=== PATIENT | male | born 1940 | race Caucasian/White ===

== ENCOUNTER 2016-11-24 20:41 | Observation (INO) ==
--- NOTE | 2016-11-24 20:47 | Emergency Department Note ---
Disposition Clinical Impression: Pancreatitis, Hyponatremia, Acute on chronic renal failure, Diarrhea, Dehydration, Generalized weakness Disposition: Admitted As Inpatient Condition: Good General Adult HPI - General Chief complaint: ED Abdominal Pain Stated complaint: abd pain, fall Time Seen by Provider: 11/24/16 20:43 - Related Data Home Medications Medication Instructions Recorded Confirmed Aspirin Enteric Coated [Aspirin EC] 162 mg PO QAM 03/08/15 11/24/16 Escitalopram [Lexapro] 10 mg PO QAM 03/08/15 11/24/16 Fluticasone/Salmeterol [Advair 1 puff IH BID 03/08/15 11/24/16 500-50 Diskus] Liraglutide [Victoza 2-Clifford] 1.8 mg SQ DAILY 03/08/15 11/24/16 Meclizine [Antivert] 25 mg PO TID PRN 03/08/15 11/24/16 Multivitamin/Iron/Folic Acid 1 tab PO QAM 03/08/15 11/24/16 [Centrum Complete Multivit Tab] Pantoprazole Sodium 40 mg PO QAM 03/08/15 11/24/16 Tamsulosin [Flomax] 0.4 mg PO QPM 03/08/15 11/24/16 Ticagrelor [Brilinta] 90 mg PO BID 03/08/15 11/24/16 Tiotropium [Spiriva] 18 mcg IH QAM 03/08/15 11/24/16 Vitamin E 400 unit PO QAM 03/08/15 11/24/16 Metoprolol [Lopressor] 25 mg PO BID 11/26/15 11/24/16 Ammonium Lactate [Lac-Hydrin Five] 1 appl TP BID 11/24/16 11/24/16 Atorvastatin Calcium [Lipitor] 80 mg PO HS 11/24/16 11/24/16 Cholecalciferol (Vitamin D3) 400 unit PO BID 11/24/16 11/24/16 [Vitamin D] Clotrimazole/Betameth Dip CRM 1 appl TP BID 11/24/16 11/24/16 [Lotrisone CRM] Insulin Glargine,Hum.rec.anlog 50 unit SQ QAM 11/24/16 11/24/16 [Lantus Solostar] Ipratropium/Albuterol Sulfate 2 puff IH QID PRN 11/24/16 11/24/16 [Combivent Respimat Inhal [place]] Isosorbide MONOnitrate [Isosorbide 120 mg PO DAILY 11/24/16 11/24/16 Mononitrate ER] Losartan Potassium [Cozaar] 50 mg PO DAILY 11/24/16 11/24/16 Nitroglycerin [Nitrostat] 0.4 mg SL Q5M PRN 11/24/16 11/24/16 Oxygen 3 l NS HS 11/24/16 11/24/16 Umeclidinium [place] [Incruse 62.5 mcg IH DAILY 11/24/16 11/24/16 Ellipta] Previous Rx's Medication Instructions Recorded Ranolazine [Ranexa] 1,000 mg PO BID #60 tab.er.12h 04/10/15 Allergies Allergy/AdvReac Type Severity Reaction Status Date / Time No Known Allergies Allergy Verified 11/26/15 08:29 Past Medical History - Past Medical History Medical history: Reports: cancer, cirrhosis, COPD, coronary artery disease, diabetes, GERD, hyperlipidemia, hypertension, liver disease, myocardial infarction, renal disease, other Surgical history: Reports: angioplasty/stent, cataract, coronary bypass (CABG) Psychiatric history: Reports: no psych history - Social History Smoking Status: Former smoker Smokeless Tobacco Status: No Alcohol use: Reports: none Drug use: Reports: none Course Vital Signs Temperature 98.6 F 11/24/16 20:55 Pulse Rate 80 11/24/16 20:55 Respiratory Rate 20 11/24/16 20:55 Blood Pressure 123/57 11/24/16 20:55 O2 Sat by Pulse Oximetry 96 11/24/16 20:55 Temperature 98.6 F 11/24/16 20:55 Pulse Rate 74 11/24/16 22:00 Respiratory Rate 16 11/24/16 22:00 Blood Pressure 102/61 11/24/16 22:00 O2 Sat by Pulse Oximetry 94 11/24/16 22:00 Oxygen Delivery Oxygen Delivery Nasal Cannula Medical Decision Making - Lab Data Result diagrams: 11/24/16 21:33 11/24/16 21:33 Lab Results 11/24/16 11/24/16 11/24/16 Range/Units 20:48 21:33 21:33 WBC 9.9 (4.3-11.1) K/mcL RBC 4.24 (4.19-5.50) M/mcL Hgb 12.0 L (12.9-16.9) g/dL Hct 36.9 L (37.5-50.1) % MCV 87.0 (83.0-100.0) fL MCH 28.3 (28.0-33.3) pg MCHC 32.5 (31.6-35.5) g/dL RDW 14.4 (11.5-14.5) % Plt Count 188 (140-400) K/mcL MPV 9.0 L (9.4-12.4) fL Immature Gran % 0.5 (0-4) % Seg Neutrophils % 73.9 % Lymphocytes % 15.3 % Monocytes % 8.4 % Eosinophils % 1.5 % Basophils % 0.4 % Neutrophils # 7.3 (1.6-8.9) K/mcL Lymphocytes # 1.5 (0.6-4.6) K/mcL Monocytes # 0.8 (0.0-1.3) K/mcL Eosinophils # 0.2 (0.0-0.6) K/mcL Basophils # 0.0 (0.0-0.2) K/mcL Immature Plt Fraction 1.7 (1.1-6.1) % Sodium 131 L (136-145) mEq/L Potassium 4.9 H (3.5-4.5) mEq/L Chloride 103 (98-109) mEq/L Carbon Dioxide 21 (19-29) mEq/L BUN 34 H (8-26) mg/dL Creatinine 1.97 H (0.72-1.25) mg/dL Est GFR ( Amer) 40 L (> 60) Est GFR (Non-Af Amer) 33 L (> 60) BUN/Creatinine Ratio 17 (6-26) Glucose 317 H (70-99) mg/dL POC Glucose 297 H (58-89) Calculated Osmolality 292 (280-300) Calcium 9.1 (8.6-10.8) mg/dL Total Bilirubin 1.2 (0.2-1.2) mg/dL Direct Bilirubin 0.5 (0.0-0.5) mg/dL Indirect Bilirubin 0.7 (0.0-1.2) mg/dL AST 20 (5-34) Units/L ALT 17 (0-55) Units/L Alkaline Phosphatase 64 (38-126) Units/L Troponin I (0-0.03) ng/mL Serum Total Protein 7.4 (6.0-8.3) g/dL Albumin 3.4 L (3.5-5.0) g/dL Globulin 4.0 H (2.4-3.5) g/dL Albumin/Globulin Ratio 0.9 L (1.1-2.2) Lipase 259 H (8-78) Units/L 11/24/16 Range/Units 21:33 WBC (4.3-11.1) K/mcL RBC (4.19-5.50) M/mcL Hgb (12.9-16.9) g/dL Hct (37.5-50.1) % MCV (83.0-100.0) fL MCH (28.0-33.3) pg MCHC (31.6-35.5) g/dL RDW (11.5-14.5) % Plt Count (140-400) K/mcL MPV (9.4-12.4) fL Immature Gran % (0-4) % Seg Neutrophils % % Lymphocytes % % Monocytes % % Eosinophils % % Basophils % % Neutrophils # (1.6-8.9) K/mcL Lymphocytes # (0.6-4.6) K/mcL Monocytes # (0.0-1.3) K/mcL Eosinophils # (0.0-0.6) K/mcL Basophils # (0.0-0.2) K/mcL Immature Plt Fraction (1.1-6.1) % Sodium (136-145) mEq/L Potassium (3.5-4.5) mEq/L Chloride (98-109) mEq/L Carbon Dioxide (19-29) mEq/L BUN (8-26) mg/dL Creatinine (0.72-1.25) mg/dL Est GFR ( Amer) (> 60) Est GFR (Non-Af Amer) (> 60) BUN/Creatinine Ratio (6-26) Glucose (70-99) mg/dL POC Glucose (58-89) Calculated Osmolality (280-300) Calcium (8.6-10.8) mg/dL Total Bilirubin (0.2-1.2) mg/dL Direct Bilirubin (0.0-0.5) mg/dL Indirect Bilirubin (0.0-1.2) mg/dL AST (5-34) Units/L ALT (0-55) Units/L Alkaline Phosphatase (38-126) Units/L Troponin I 0.01 (0-0.03) ng/mL Serum Total Protein (6.0-8.3) g/dL Albumin (3.5-5.0) g/dL Globulin (2.4-3.5) g/dL Albumin/Globulin Ratio (1.1-2.2) Lipase (8-78) Units/L Attestation Statement - Attestation Attestation: I examined this patient and my medical decision-making was reviewed with the KITCHEN SUPERVISOR/PA/Advanced Practice Nurse/Resident Physician. I agree with the documented findings, disposition and treatment plan as described except to the extent set forth below. Face to face time provided Patient presents via EMS from home. He sustained a witnessed fall. No loss of consciousness. He denies injury. Witnesses describe him as being "shaky" and falling forward. Patient feels fine at the time of my exam. He appears in no acute distress. He does admit to a 3 day history of "being sick" described as having diarrhea.
[2016-11-24] MEDS ORDERED: 0.9 % Sodium Chloride 1,000 ML IVC ONE (20:53)
--- NOTE | 2016-11-24 21:09 | Emergency Department Note ---
Disposition Clinical Impression: Hyponatremia, Acute on chronic renal failure, Diarrhea, Dehydration, Generalized weakness Pancreatitis Qualifiers: Chronicity: acute Pancreatitis type: unspecified pancreatitis type Acute pancreatitis complication: unspecified Qualified Code(s): K85.90 - Acute pancreatitis without necrosis or infection, unspecified Disposition: Admitted As Inpatient Condition: Good Referrals: NO,PCP [Non-Partnered Physician] - Forms: ED Satisfaction Letter, Work/School Release General Adult HPI - General Chief complaint: ED Abdominal Pain Stated complaint: abd pain, fall Time Seen by Provider: 11/24/16 20:43 Source: patient, family, EMS Limitations: no limitations Nursing Notes Reviewed: Yes Vital Signs Reviewed: Yes - History of Present Illness HPI Narrative: 76-year-old male presents to the ED after a fall. He states for the past 3 days he has had 2-3 episodes of diarrhea daily. He reports eating a sandwich from [employer] and shortly after developed diarrhea. Nonbloody, described as water. No recent antibiotics. He has had no fevers or chills. He states he has felt drained and tired but no other symptoms. He was walking in the living room and he states he fell on the ground because he felt generally weak. He had no preceding symptoms such as worsening pain, nausea or vomiting, chest pain or shortness of breath, lightheadedness or dizziness. He states he fell because he has been weak. There was no loss of consciousness. He did not hit his head and denies any headache. He reports occasional lower abdominal cramping when going on while he has been sick but no continuous or significant pain. Denies any ripping or tearing pain or radiation of the pain particularly into the back. He has a history of coronary disease and has had open heart surgery twice. He takes aspirin and Brilinta. He is also an insulin-dependent diabetic. Currently denies symptoms and states he feels fine. Pain Scale: 0 - Related Data Home Medications Medication Instructions Recorded Confirmed Aspirin Enteric Coated [Aspirin EC] 81 mg PO QAM 03/08/15 11/26/15 Atorvastatin [Lipitor] 80 mg PO QPM 03/08/15 11/26/15 Cholecalciferol (Vitamin D3) 1,000 unit PO QAM 03/08/15 11/26/15 [Vitamin D3] Escitalopram [Lexapro] 10 mg PO QAM 03/08/15 11/26/15 Fluticasone/Salmeterol [Advair 1 puff IH BID 03/08/15 11/26/15 500-50 Diskus] Ipratropium/Albuterol Sulfate 1 puff IH QID 03/08/15 11/26/15 [Combivent Respimat Inhal [place]] Isosorbide MONOnitrate (24 HR) 120 mg PO QAM 03/08/15 11/26/15 [Imdur] Liraglutide [Victoza 2-Clifford] 1.2 mg SQ QAM 03/08/15 11/26/15 Losartan [Cozaar] 50 mg PO QAM 03/08/15 11/26/15 Meclizine [Antivert] 25 mg PO TID PRN 03/08/15 11/26/15 Multivitamin/Iron/Folic Acid 1 tab PO QAM 03/08/15 11/26/15 [Centrum Complete Multivit Tab] Pantoprazole Sodium 40 mg PO QAM 03/08/15 11/26/15 Tamsulosin [Flomax] 0.4 mg PO QPM 03/08/15 11/26/15 Ticagrelor [Brilinta] 90 mg PO BID 03/08/15 11/26/15 Tiotropium [Spiriva] 18 mcg IH QAM 03/08/15 11/26/15 Vitamin E 400 unit PO QAM 03/08/15 11/26/15 Metoprolol [Lopressor] 25 mg PO BID 11/26/15 11/26/15 Previous Rx's Medication Instructions Recorded Ranolazine [Ranexa] 1,000 mg PO BID #60 tab.er.12h 04/10/15 Cephalexin [Keflex] 500 mg PO TID #15 capsule 01/05/16 Amoxicillin/Clavulanate [Augmentin] 875 mg PO BIDWM #20 tablet 07/17/16 Benzonatate [Tessalon] 100 mg PO TID #30 capsule 07/17/16 Promethazine/Codeine 5 ml PO Q6HR #240 ml 07/17/16 [Phenergan/Codeine] Allergies Allergy/AdvReac Type Severity Reaction Status Date / Time No Known Allergies Allergy Verified 11/26/15 08:29 All systems ED: reviewed and negative except as stated. Constitutional: Denies: fever, chills Cardiovascular: Denies: chest pain, syncope Respiratory: Denies: cough, dyspnea Gastrointestinal: Reports: diarrhea. Denies: nausea, vomiting, melena, hematochezia Genitourinary: Denies: urgency, dysuria Musculoskeletal: Denies: back pain, neck pain Neurological: Denies: headache, weakness (Generalized but nothing focal), numbness Past Medical History - Past Medical History Medical history: Reports: cancer, cirrhosis, COPD, coronary artery disease, diabetes, GERD, hyperlipidemia, hypertension, liver disease, myocardial infarction, renal disease, other Surgical history: Reports: angioplasty/stent, cataract, coronary bypass (CABG) Psychiatric history: Reports: no psych history - Social History Smoking Status: Former smoker Smokeless Tobacco Status: No Alcohol use: Reports: none Drug use: Reports: none Physical Exam General: Appears well, alert and oriented x 3 Cardiovascular: Regular rate and rhythm. S1, S2. No murmurs, rubs or gallops. Respiratory: Breath sounds clear bilaterally. No wheezing, rales or rhonchi. No resp distress Abdomen: Abdomen is soft without any guarding, rebound or rigidity. Normal bowel sounds throughout. No bruising or signs of injury. Mild lower abdominal discomfort. No focal right lower quadrant pain at McBurney's point. Negative Joiner's. No hernias palpated. No pulsatile abdominal mass. Eyes: No scleral icterus, conjunctiva clear HENT: Normocephalic, no signs of head injury. No head tenderness No oral mucosal lesions. Moist mucous membranes Neck: No midline pain. Neuro: Cranial nerves intact. No motor or sensory deficit. 5/5 lower extremity strength throughout. 5/5 upper extremity strength throughout. Normal sensation throughout. Musculoskeletal: No joint tenderness or swelling Skin: No lesions. No diaphoresis. Normal turgor. Normal color Psych: Appropriate - General Limitations: no limitations General appearance: alert, in no apparent distress Course Course Narrative: Presents to emergency department with a chief complaint of diarrhea and generalized weakness. He had a fall today but no preceding symptoms. EKG unremarkable. Abdomen is soft without any surgical findings. Labs reveal an elevated lipase at 259. He is hyponatremic at 131 and hyperkalemic at 4.9. He has acute on chronic renal insufficiency with a creatinine of 1.9. With this at this time to admit the patient the hospital and provide IV hydration, correct his electrolytes and continue to monitor. I discussed with the on-call hospitalist, Dr Richards who accepts for admission. He requests a CT scan of the abdomen due to the elevated lipase to look for pancreatitis. We will have to use no IV contrast because of his renal insufficiency. Vital Signs Temperature 98.6 F 11/24/16 20:55 Pulse Rate 80 11/24/16 20:55 Respiratory Rate 20 11/24/16 20:55 Blood Pressure 123/57 11/24/16 20:55 O2 Sat by Pulse Oximetry 96 11/24/16 20:55 Temperature 98.6 F 11/24/16 20:55 Pulse Rate 80 11/24/16 20:55 Respiratory Rate 20 11/24/16 20:55 Blood Pressure 123/57 11/24/16 20:55 O2 Sat by Pulse Oximetry 96 11/24/16 20:59 Oxygen Delivery Oxygen Delivery Nasal Cannula Medical Decision Making - Lab Data Result diagrams: 11/24/16 21:33 11/24/16 21:33 Lab Results 11/24/16 11/24/16 11/24/16 Range/Units 20:48 21:33 21:33 WBC 9.9 (4.3-11.1) K/mcL RBC 4.24 (4.19-5.50) M/mcL Hgb 12.0 L (12.9-16.9) g/dL Hct 36.9 L (37.5-50.1) % MCV 87.0 (83.0-100.0) fL MCH 28.3 (28.0-33.3) pg MCHC 32.5 (31.6-35.5) g/dL RDW 14.4 (11.5-14.5) % Plt Count 188 (140-400) K/mcL MPV 9.0 L (9.4-12.4) fL Immature Gran % 0.5 (0-4) % Seg Neutrophils % 73.9 % Lymphocytes % 15.3 % Monocytes % 8.4 % Eosinophils % 1.5 % Basophils % 0.4 % Neutrophils # 7.3 (1.6-8.9) K/mcL Lymphocytes # 1.5 (0.6-4.6) K/mcL Monocytes # 0.8 (0.0-1.3) K/mcL Eosinophils # 0.2 (0.0-0.6) K/mcL Basophils # 0.0 (0.0-0.2) K/mcL Immature Plt Fraction 1.7 (1.1-6.1) % Sodium 131 L (136-145) mEq/L Potassium 4.9 H (3.5-4.5) mEq/L Chloride 103 (98-109) mEq/L Carbon Dioxide 21 (19-29) mEq/L BUN 34 H (8-26) mg/dL Creatinine 1.97 H (0.72-1.25) mg/dL Est GFR ( Amer) 40 L (> 60) Est GFR (Non-Af Amer) 33 L (> 60) BUN/Creatinine Ratio 17 (6-26) Glucose 317 H (70-99) mg/dL POC Glucose 297 H (58-89) Calculated Osmolality 292 (280-300) Calcium 9.1 (8.6-10.8) mg/dL Total Bilirubin 1.2 (0.2-1.2) mg/dL Direct Bilirubin 0.5 (0.0-0.5) mg/dL Indirect Bilirubin 0.7 (0.0-1.2) mg/dL AST 20 (5-34) Units/L ALT 17 (0-55) Units/L Alkaline Phosphatase 64 (38-126) Units/L Troponin I (0-0.03) ng/mL Serum Total Protein 7.4 (6.0-8.3) g/dL Albumin 3.4 L (3.5-5.0) g/dL Globulin 4.0 H (2.4-3.5) g/dL Albumin/Globulin Ratio 0.9 L (1.1-2.2) Lipase 259 H (8-78) Units/L 11/24/16 Range/Units 21:33 WBC (4.3-11.1) K/mcL RBC (4.19-5.50) M/mcL Hgb (12.9-16.9) g/dL Hct (37.5-50.1) % MCV (83.0-100.0) fL MCH (28.0-33.3) pg MCHC (31.6-35.5) g/dL RDW (11.5-14.5) % Plt Count (140-400) K/mcL MPV (9.4-12.4) fL Immature Gran % (0-4) % Seg Neutrophils % % Lymphocytes % % Monocytes % % Eosinophils % % Basophils % % Neutrophils # (1.6-8.9) K/mcL Lymphocytes # (0.6-4.6) K/mcL Monocytes # (0.0-1.3) K/mcL Eosinophils # (0.0-0.6) K/mcL Basophils # (0.0-0.2) K/mcL Immature Plt Fraction (1.1-6.1) % Sodium (136-145) mEq/L Potassium (3.5-4.5) mEq/L Chloride (98-109) mEq/L Carbon Dioxide (19-29) mEq/L BUN (8-26) mg/dL Creatinine (0.72-1.25) mg/dL Est GFR ( Amer) (> 60) Est GFR (Non-Af Amer) (> 60) BUN/Creatinine Ratio (6-26) Glucose (70-99) mg/dL POC Glucose (58-89) Calculated Osmolality (280-300) Calcium (8.6-10.8) mg/dL Total Bilirubin (0.2-1.2) mg/dL Direct Bilirubin (0.0-0.5) mg/dL Indirect Bilirubin (0.0-1.2) mg/dL AST (5-34) Units/L ALT (0-55) Units/L Alkaline Phosphatase (38-126) Units/L Troponin I 0.01 (0-0.03) ng/mL Serum Total Protein (6.0-8.3) g/dL Albumin (3.5-5.0) g/dL Globulin (2.4-3.5) g/dL Albumin/Globulin Ratio (1.1-2.2) Lipase (8-78) Units/L - EKG Data EKG #1 EKG results narrative: EKG shows a sinus rhythm with a rate of [address] changes. He has a right bundle branch block pattern. No change from previous on 04/10/15. T -wave flattening in lead 3 and aVF which is chronic. No new T-wave inversions.
[2016-11-24 21:41] LABS: Basophils % 0.4 %; Eosinophils # 0.2 K/mcL (0.0-0.6); Eosinophils % 1.5 %; Hematocrit 36.9 % (37.5-50.1); Immature Granulocytes % 0.5 % (0-4); Immature Platelets 1.7 % (1.1-6.1); Lymphocytes # 1.5 K/mcL (0.6-4.6); Lymphocytes % 15.3 %; Mean Corpuscular HGB Conc 32.5 g/dL (31.6-35.5); Mean Corpuscular Hemoglobin 28.3 pg (28.0-33.3); Monocytes # 0.8 K/mcL (0.0-1.3); Monocytes % 8.4 %; Neutrophils # 7.3 K/mcL (1.6-8.9); Platelet Count 188 K/mcL (140-400); Red Blood Count 4.24 M/mcL (4.19-5.50); Red Cell Distribution Width 14.4 % (11.5-14.5); Segmented Neutrophils % 73.9 %
[2016-11-24 21:54] LABS: Albumin 3.4 g/dL (3.5-5.0); Albumin/Globulin Ratio 0.9 (1.1-2.2); Bilirubin,Direct 0.5 mg/dL (0.0-0.5); Bilirubin,Indirect 0.7 mg/dL (0.0-1.2); Bilirubin,Total 1.2 mg/dL (0.2-1.2); Calcium 9.1 mg/dL (8.6-10.8); Potassium 4.9 mEq/L (3.5-4.5); Total Protein 7.4 g/dL (6.0-8.3)
[2016-11-24] MEDS ORDERED: Ondansetron 4 MG/2 ML VIAL IVP PRN (23:47)
[2016-11-24] MEDS ORDERED: Naloxone 0.4 MG/ML INJ IVP PRN (23:47)
--- NOTE | 2016-11-25 | Internal Med History&Physical ---
Addendum entered and electronically signed by Chris Awad, DO 11/25/16 00:33: Additional diagnoses: Hyperkalemia: Likely related to the patient's dehydration. No evidence of cardiac arrhythmia. Will recheck potassium. Will initiate cardiac monitoring. Type 2 diabetes: Blood sugar was elevated on presentation. As the patient is nothing by mouth we will hold his long-acting insulin and institute a high-dose sliding scale. Once the patient is able to eat and we have a better idea of his blood sugar trend we can then adjust his insulin accordingly. Original Note: <Chris Awad - Last Filed: 11/25/16 00:26> Date of Encounter: 11/25/16 Time of Encounter: 23:55 Assessment and Plan (1) Enteritis Current visit: Yes Status: Acute Given the patient's symptoms of watery diarrhea in the absence of nausea and vomiting enteritis is likely. His symptoms are improving. He does not have any recent healthcare exposure or antibiotic use so C. difficile is unlikely at this time. We will treat symptomatically and give fluid hydration. Patient has not had a bowel movement since this morning. If his diarrhea worsens we will send a sample for the GI panel. CT scan showed concern for small bowel obstruction however clinically the patient does not appear to have a small bowel obstruction as he is having continual bowel movements and he is not having any nausea or vomiting. We will observe the patient overnight and if he does not appear to be improving and will consider consulting surgery. We will keep the patient nothing by mouth at this time. (2) Dehydration Current visit: Yes Status: Acute Likely related to diarrhea secondary to enteritis. Patient was having some dizziness and lightheaded this with an associated fall. Will fluid hydrate with normal saline at 150 mL an hour for a total of 2 L. (3) Acute on chronic renal failure Current visit: Yes Status: Acute Drains elevated at 1.97 today, baseline appears to be 1.3-1.5. Likely related to dehydration. Patient continues to have good urine output. We will hydrate as discussed above. Will recheck creatinine in the morning. (4) COPD (chronic obstructive pulmonary disease) Current visit: No Status: Acute Stable this time. No evidence exacerbation. We will continue home medications. Qualifiers: COPD type: unspecified COPD Qualified Code(s): J44.9 - Chronic obstructive pulmonary disease, unspecified (5) CAD (coronary artery disease) Current visit: No Status: Acute Status post CABG several years ago. Patient is currently on dual antiplatelet therapy. Patient states that he had a stent placed one to 2 years ago at [facility] and was told at that time he would need to be on both aspirin and the length of the rest of his life. We will continue this. Qualifiers: Coronary Disease-Associated Artery/Lesion type: [place] artery [place] vs. transplanted heart: [place] heart Associated angina: without angina Qualified Code(s): I25.10 - Atherosclerotic heart disease of [place] coronary artery without angina pectoris (6) DVT prophylaxis Current visit: Yes Status: Acute Heparin 5000 units subcutaneous twice a day. Internal Medicine - H&P: HPI Chief complaint: Diarrhea Admitted From: Home Plans for Post Hospital Care: Home History of present illness: Mr. High is a 76 year old male with history of hepatic cirrhosis presents with a three-day history of diarrhea. Patient states that he had diarrhea 3 days ago shortly after eating a [employer] chicken sandwich. Since then he has had continual diarrhea with 3-4 bowel movements daily. He describes his bowel movements as watery and nonbloody. He feels like these are gradually improving. Today he felt lightheaded and dizzy and had a fall. He denies hitting his head or losing consciousness. He also states that his stomach felt distended and tight but this is improved today. Patient states that he has had no nausea or vomiting throughout this entire episode. He states nobody else that ate [employer] got sick and he denies anybody around him being sick recently. He denies any recent antibiotic use. He denies fever, chills, chest pain, shortness of breath, dysuria. Past Med Surg Social Fam HX - Past Medical History Medical history: cancer, cirrhosis, COPD, coronary artery disease, diabetes, GERD, hyperlipidemia, hypertension, liver disease, myocardial infarction, renal disease, other Psychiatric history: no psych history - Past Surgical History Surgical History: angioplasty/stent, cataract, coronary bypass (CABG) - Social History Smoking Status: Former smoker Smokeless Tobacco Status: No Alcohol use: none Drug use: none - Family History Mother Adopted: No Family Member Ethnicity: Non- Living Status: Cause of : unsure Hx Family Cardiac Disorders: No Hx Family Respiratory Disorders: No Hx Family Cancer: No Hx Family GI Disorders: No Hx Family Genitourinary Disorders: No Hx Family Endocrine Disorder: No Hx Family Musculoskeletal Disorders: No Hx Family Neuromuscular Disorders: No Hx Family Neurologic Disorders: No Hx Family HEENT Disorders: No Hx Family Autoimmune Disorders: No Hx Family Reproductive Disorders: No Hx Family Psychosocial Disorders: No Hx Family Medical Disorders: No Internal Medicine - H&P: Meds Aspirin Enteric Coated [Aspirin EC] 162 mg PO QAM 03/08/15 [History] Escitalopram [Lexapro] 10 mg PO QAM 03/08/15 [History] Fluticasone/Salmeterol [Advair 500-50 Diskus] 1 puff IH BID 03/08/15 [History] Liraglutide [Victoza 2-Clifford] 1.8 mg SQ DAILY 03/08/15 [History] Meclizine [Antivert] 25 mg PO TID PRN 03/08/15 [History] Multivitamin/Iron/Folic Acid [Centrum Complete Multivit Tab] 1 tab PO QAM [History] Pantoprazole Sodium 40 mg PO QAM 03/08/15 [History] Tamsulosin [Flomax] 0.4 mg PO QPM 03/08/15 [History] Ticagrelor [Brilinta] 90 mg PO BID 03/08/15 [History] Tiotropium [Spiriva] 18 mcg IH QAM 03/08/15 [History] Vitamin E 400 unit PO QAM 03/08/15 [History] Ranolazine [Ranexa] 1,000 mg PO BID #60 tab.er.12h 04/10/15 [Rx] Metoprolol [Lopressor] 25 mg PO BID 11/26/15 [History] Ammonium Lactate [Lac-Hydrin Five] 1 appl TP BID 11/24/16 [History] Atorvastatin Calcium [Lipitor] 80 mg PO HS 11/24/16 [History] Cholecalciferol (Vitamin D3) [Vitamin D] 400 unit PO BID 11/24/16 [History] Clotrimazole/Betameth Dip CRM [Lotrisone CRM] 1 appl TP BID 11/24/16 [History] Insulin Glargine,Hum.rec.anlog [Lantus Solostar] 50 unit SQ QAM 11/24/16 [ History] Ipratropium/Albuterol Sulfate [Combivent Respimat Inhal [place]] 2 puff IH QID PRN 11/24/16 [History] Isosorbide MONOnitrate [Isosorbide Mononitrate ER] 120 mg PO DAILY 11/24/16 [ History] Losartan Potassium [Cozaar] 50 mg PO DAILY 11/24/16 [History] Nitroglycerin [Nitrostat] 0.4 mg SL Q5M PRN 11/24/16 [History] Oxygen 3 l NS HS 11/24/16 [History] Umeclidinium [place] [Incruse Ellipta] 62.5 mcg IH DAILY 11/24/16 [History] Allergies No Known Allergies Allergy (Verified 11/26/15 08:29) All Systems PM: A 10-system review of systems was performed and is negative for pertinent findings except as documented above in the HPI. - Constitutional Constitutional: falls, no chills, no fever(s) - EENT Eyes: no change in vision - Cardiovascular Cardiovascular ROS IM: lightheadedness, no chest pain, no dyspnea, no edema, no palpitations - Respiratory Respiratory: no cough, no dyspnea - Gastrointestinal Gastrointestinal: abdominal pain, bloating, diarrhea, no coffee ground emesis, no hematemesis, no hematochezia, no melena, no nausea, no vomiting - Genitourinary Genitourinary ROS male: no dysuria - Musculoskeletal Musculoskeletal ROS IM: no numbness, no tingling - Neurological Neurological ROS: dizziness, no numbness, no weakness - Allergic/Immunologic Allergic/Immunologic: GI upset with certain foods - Constitutional Vitals: Temp Pulse Resp BP Pulse Ox 98.6 F 74 16 100/49 94 11/24/16 20:55 11/24/16 22:00 11/24/16 22:51 11/24/16 22:51 11/24/16 22:00 General appearance: Present: A&O X 3, no acute distress, obese - Head Head exam: Present: atraumatic, normal inspection, normocephalic - Eye Eye exam: Present: EOMI, PERRL. Absent: scleral icterus - ENT ENT exam: Present: mucous membranes dry, normal oropharynx - Respiratory Respiratory exam: Present: CTAB. Absent: rales, rhonchi, wheezes - Cardiovascular Cardiovascular exam: Present: RRR. Absent: gallop, rubs, systolic murmur - GI/Abdominal GI/Abdominal exam: Present: distended, normal bowel sounds, soft, tenderness ( Mild, diffuse), no peritoneal signs. Absent: firm, rebound, rigid - Extremities Exam Extremities exam: Absent: pedal edema, tenderness - Neurological Exam Neurological exam: Present: alert, CN II-XII intact, oriented X3, no focal deficits - Psychiatric Psychiatric exam: Present: normal affect, normal mood Internal Med - H&P Results - Labs CBC & Chem 7: 11/24/16 21:33 11/24/16 21:33 <Jan Sotomayor - Last Filed: 11/25/16 00:51> Date of Encounter: 11/24/16 Internal Medicine - H&P: HPI History of present illness: Mr. High is a 76 year old male All Systems PM: A 10-system review of systems was performed and is negative for pertinent findings except as documented above in the HPI. - Constitutional Vitals: Temp Pulse Resp BP Pulse Ox 98.0 F 71 18 105/62 97 11/24/16 23:57 11/24/16 23:57 11/24/16 23:57 11/24/16 23:57 11/24/16 23:57 Internal Med - H&P Results - Labs CBC & Chem 7: 11/24/16 21:33 11/24/16 21:33 - Attending Attestation pls note correction; date of service is 11/24/16 and NOT 11/25/16 I personally interviewed and examined this patient and my medical decision- making was reviewed with the Resident Physician. I agree with the documented findings, disposition and treatment plan as described. His symptoms most likely related to food poisoning, CT abdomen mentions SBO but patient is not having nausea, vomiting and looks clinically stable, we will do clear liquid diet for now and advance as tolerated but should his symptoms resume we will make him NPO and get surgical consult.
[2016-11-25] MEDS ORDERED: NON-FORMULARY MEDICATION 1 EACH EACH (Ipratropium/Albuterol Sulfate [Combivent Respimat In IH PRN (00:16)
[2016-11-25] MEDS ORDERED: Ipratropium 1 PUFF INHALER IH PRN (00:27)
[2016-11-25] MEDS ORDERED: *HR* Dextrose 50 % in Water (Syg) 50 ML SYRINGE IVP PRN (00:31)
[2016-11-25] MEDS ORDERED: Dextrose Gel 15 GM PO PRN ×2 (00:31)
[2016-11-25] MEDS ORDERED: D5% in Water 1,000 ML IVC PRN (00:31)
[2016-11-25] MEDS: 0.9 % Sodium Chloride 1,000 ML IVC SCH ×4 (01:04→23:19)
[2016-11-25 01:27] LABS: Basophils % 0.3 %; Eosinophils # 0.2 K/mcL (0.0-0.6); Eosinophils % 2.2 %; Hematocrit 35.6 % (37.5-50.1); Hemoglobin 11.7 g/dL (12.9-16.9); Immature Granulocytes % 0.3 % (0-4); Lymphocytes # 1.9 K/mcL (0.6-4.6); Lymphocytes % 21.5 %; Mean Corpuscular HGB Conc 32.9 g/dL (31.6-35.5); Mean Corpuscular Hemoglobin 28.7 pg (28.0-33.3); Mean Corpuscular Volume 87.3 fL (83.0-100.0); Mean Platelet Volume 9.2 fL (9.4-12.4); Monocytes # 0.9 K/mcL (0.0-1.3); Monocytes % 9.5 %; Platelet Count 163 K/mcL (140-400); Red Blood Count 4.08 M/mcL (4.19-5.50); Red Cell Distribution Width 14.4 % (11.5-14.5); Segmented Neutrophils % 66.2 %
[2016-11-25 01:32] LABS: INR 1.2; Prothrombin Time 13.1 Seconds (9.4-12.1)
[2016-11-25 01:43] LABS: Calcium 9.1 mg/dL (8.6-10.8); Magnesium 1.9 mg/dL (1.6-2.6); Potassium 4.6 mEq/L (3.5-4.5)
[2016-11-25 06:14] LABS: Bilirubin,Urine Negative (Negative); Blood,Urine Negative (Negative); Clarity,Urine Clear (Clear); Color,Urine Dark Yellow (Yellow); Glucose,Urine (UA) Normal (Normal); Ketones,Urine Negative (Negative); Leukocyte Esterase,Urine Moderate (Negative); Nitrite,Urine Negative (Negative); PH,Urine 5.5 pH Units (5.0-8.0); Protein,Urine 30 mg/dL (Neg-Trace); Specific Gravity,Urine 1.023 (1.010-1.025); Urobilinogen,Urine Normal (Normal)
[2016-11-25 06:15] LABS: Bacteria,Urine None Seen per hpf (None-Few); Hyaline Casts,Urine None Seen per lpf (None-Few); Squamous Epithelial Cell,Urine Many per lpf (None-Few); WBC,Urine 15-30 per hpf (0-3)
[2016-11-25] MEDS: Insulin LISPRO 300 UNITS/3 ML VIAL SQ SCH ×3 (06:20→17:33)
[2016-11-25] MEDS: *HR* Heparin 5,000 UNIT/ML VIAL SQ SCH ×2 (06:20→17:33)
[2016-11-25] MEDS: Budesonide/Formoterol 160/4.5 MDI IH SCH ×2 (07:53→20:56)
[2016-11-25] MEDS: Tiotropium 18 MCG inhalation IH SCH (07:53)
[2016-11-25] MEDS: Cholecalciferol (D-3) 1,000 UNIT TABLET PO SCH (08:35)
[2016-11-25] MEDS: *HR* Ticagrelor 90 MG TABLET PO SCH ×2 (08:35→23:18)
[2016-11-25] MEDS: Isosorbide MONOnitrate (24 HR) 60 MG TAB.ER.24H PO SCH (08:35)
[2016-11-25] MEDS: Aspirin Enteric Coated 81 MG Tablet PO SCH (08:36)
[2016-11-25] MEDS: VICTOZA 1.8 MG SQ SCH (08:39)
--- NOTE | 2016-11-25 14:11 | Event Note ---
Date of Encounter: 11/25/16 Time of Encounter: 14:09 Patient admitted for enteritis last night with diarrhea and abdominal pain after eating a sandwich at [facility]. CT abdomen was done which was concerning for small bowel obstruction. However clinically he has been having bowel movements, on exam he has bowel sounds, no abdominal pain or distention. No nausea or vomiting. Patient has been nothing by mouth since last night, will start clears and will monitor for any nausea or vomiting or abdominal distention. will advance the diet as tolerated and will dc tomm if stable.
--- NOTE | 2016-11-25 16:59 | Electrocardiograph Report ---
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
[2016-11-26] MEDS: Insulin LISPRO 300 UNITS/3 ML VIAL SQ SCH ×3 (02:21→12:12)
[2016-11-26] MEDS: *HR* Heparin 5,000 UNIT/ML VIAL SQ SCH (06:16)
[2016-11-26] MEDS: Tiotropium 18 MCG inhalation IH SCH (08:17)
[2016-11-26] MEDS: Budesonide/Formoterol 160/4.5 MDI IH SCH (08:17)
[2016-11-26] MEDS: VICTOZA 1.8 MG SQ SCH (08:28)
[2016-11-26] MEDS: Isosorbide MONOnitrate (24 HR) 60 MG TAB.ER.24H PO SCH (08:30)
[2016-11-26] MEDS: *HR* Ticagrelor 90 MG TABLET PO SCH (08:30)
[2016-11-26] MEDS: Cholecalciferol (D-3) 1,000 UNIT TABLET PO SCH (08:30)
[2016-11-26] MEDS: Aspirin Enteric Coated 81 MG Tablet PO SCH (08:31)
[2016-11-26 14:14] VITALS: BP 108/60
--- NOTE | 2016-11-26 15:30 | Discharge Summary ---
Date of Encounter: 11/26/16 Time of Encounter: 15:27 - Discharge Diagnosis (1) HTN (hypertension) Priority: Secondary Status: Acute Qualifiers: Hypertension type: essential hypertension Qualified Code(s): I10 - Essential (primary) hypertension (2) Diabetes Priority: Secondary Status: Acute Qualifiers: Diabetes mellitus type: type 2 Qualified Code(s): E11.9 - Type 2 diabetes mellitus without complications (3) COPD (chronic obstructive pulmonary disease) Priority: Secondary Status: Acute Qualifiers: COPD type: unspecified COPD Qualified Code(s): J44.9 - Chronic obstructive pulmonary disease, unspecified (4) GERD (gastroesophageal reflux disease) Priority: Secondary Status: Acute Qualifiers: Esophagitis presence: without esophagitis Qualified Code(s): K21.9 - Gastro -esophageal reflux disease without esophagitis (5) Enteritis Priority: Primary Status: Acute - Discharge Medications Home Medications: Aspirin Enteric Coated [Aspirin EC] 162 mg PO QAM 03/08/15 [History] Escitalopram [Lexapro] 10 mg PO QAM 03/08/15 [History] Fluticasone/Salmeterol [Advair 500-50 Diskus] 1 puff IH BID 03/08/15 [History] Liraglutide [Victoza 2-[place]] 1.8 mg SQ DAILY 03/08/15 [History] Meclizine [Antivert] 25 mg PO TID PRN 03/08/15 [History] Multivitamin/Iron/Folic Acid [Centrum Complete Multivit Tab] 1 tab PO QAM [History] Pantoprazole Sodium 40 mg PO QAM 03/08/15 [History] Tamsulosin [Flomax] 0.4 mg PO QPM 03/08/15 [History] Ticagrelor [Brilinta] 90 mg PO BID 03/08/15 [History] Tiotropium [Spiriva] 18 mcg IH QAM 03/08/15 [History] Vitamin E 400 unit PO QAM 03/08/15 [History] Ranolazine [Ranexa] 1,000 mg PO BID #60 tab.er.12h 04/10/15 [Rx] Metoprolol [Lopressor] 25 mg PO BID 11/26/15 [History] Ammonium Lactate [Lac-Hydrin Five] 1 appl TP BID 11/24/16 [History] Atorvastatin Calcium [Lipitor] 80 mg PO HS 11/24/16 [History] Cholecalciferol (Vitamin D3) [Vitamin D3] 400 unit PO BID 11/24/16 [History] Clotrimazole/Betameth Dip CRM [Lotrisone CRM] 1 appl TP BID 11/24/16 [History] Insulin Glargine,Hum.rec.anlog [Lantus Solostar] 50 unit SQ QAM 11/24/16 [ History] Ipratropium/Albuterol Sulfate [Combivent Respimat Inhal [place]] 2 puff IH QID PRN 11/24/16 [History] Isosorbide MONOnitrate [Isosorbide Mononitrate ER] 120 mg PO DAILY 11/24/16 [ History] Losartan Potassium [Cozaar] 50 mg PO DAILY 11/24/16 [History] Nitroglycerin [Nitrostat] 0.4 mg SL Q5M PRN 11/24/16 [History] Oxygen 3 l NS HS 11/24/16 [History] Umeclidinium [place] [Incruse Ellipta] 62.5 mcg IH DAILY 11/24/16 [History] Allergies/Adverse Reactions: Allergies No Known Allergies Allergy (Verified 11/26/15 08:29) Procedures/tests Complete & Pending: Procedures Performed prior 72 hours Category Date Time Status ECG 12 lead ECG [ECG] Routine Y 11/24/16 21:00 Completed Date of admission: 11/24/16 22:18 Primary care physician: William Muñiz MD Discharging clinician: Cecilia Calix Anticipated date of discharge: 11/26/16 - Patient Status Disposition: Home, Self-Care Condition: Fair Functional capacity at discharge: independent ambulation Overall status at discharge: patient is back to baseline - Discharge Instructions Instructions: Chest Pain (DC), Pancreatitis (DC), Anemia (GEN) Follow Up With: William Muñiz MD [Primary Care Provider] - 12/05/16 3:00 pm - Diet and Activity Activity: resume usual activities as tolerated Diet: other (soft diet for 5 days) Interval History: Patient admitted for enteritis with diarrhea and abdominal pain after eating a sandwich at [facility]. CT abdomen was done which was concerning for small bowel obstruction. However clinically he has been having bowel movements, on exam he has bowel sounds, no abdominal pain or distention. No nausea or vomiting. Patient was observed overnight NPO ,started clears the next day which he tolerated well without any nausea or vomiting or abdominal distention. diet is advanced today to soft which he tolerated again. HE is moving bowels and has good bowel sounds. he is being dc in stable condition. Hospital course: Mr. High is a 76 year old male - Time Spent with Patient Total time spent providing and/or coordinating discharge services: - Constitutional Vitals: Temp Pulse Resp BP Pulse Ox 97.6 F 67 17 108/60 97 11/26/16 14:14 11/26/16 14:14 11/26/16 14:14 11/26/16 14:14 11/26/16 14:14 General appearance: Present: A&O X 3, no acute distress, obese Exam: - Head Head exam: Present: atraumatic, normal inspection, normocephalic - Eye Eye exam: Present: EOMI, PERRL. Absent: scleral icterus - ENT ENT exam: Present: mucous membranes dry, normal oropharynx - Respiratory Respiratory exam: Present: CTAB. Absent: rales, rhonchi, wheezes - Cardiovascular Cardiovascular exam: Present: RRR. Absent: gallop, rubs, systolic murmur - GI/Abdominal GI/Abdominal exam: Present: normal bowel sounds, soft, non tender, no peritoneal signs. Absent: firm, rebound, rigid - Extremities Exam Extremities exam: Absent: pedal edema, tenderness - Neurological Exam Neurological exam: Present: alert, CN II-XII intact, oriented X3, no focal deficits - Psychiatric Psychiatric exam: Present: normal affect, normal mood
== END 2016-11-26 16:40 | disposition home or self-care (01) ==
LOC: EMEROO 20:41 → 3ANU 20:41
PROVIDERS: ADMIT Internal Medicine; ATTEND Internal Medicine

== ENCOUNTER 2019-03-11 23:37 | Inpatient (IN) ==
[2019-03-12 01:33] LABS: Basophils % 0.3 %; Eosinophils # 0.1 K/mcL (0.0-0.6); Eosinophils % 1.9 %; Hemoglobin 10.4 g/dL (12.9-16.9); Immature Granulocytes % 0.5 % (0-4); Lymphocytes # 1.4 K/mcL (0.6-4.6); Lymphocytes % 18.7 %; Mean Corpuscular HGB Conc 32.5 g/dL (31.6-35.5); Mean Corpuscular Hemoglobin 29.5 pg (28.0-33.3); Mean Corpuscular Volume 90.7 fL (83.0-100.0); Mean Platelet Volume 8.7 fL (9.4-12.4); Monocytes # 0.5 K/mcL (0.0-1.3); Monocytes % 7.2 %; Neutrophils # 5.4 K/mcL (1.6-8.9); Platelet Count 132 K/mcL (140-400); Red Blood Count 3.53 M/mcL (4.19-5.50); Red Cell Distribution Width 13.9 % (11.5-14.5); Segmented Neutrophils % 71.4 %; White Blood Count 7.5 K/mcL (4.3-11.1)
[2019-03-12 01:43] LABS: INR 1.2; Prothrombin Time 13.4 Seconds (9.4-12.1)
[2019-03-12 01:45] LABS: Activated Partial Thrombo Time 30.4 Seconds (26.0-36.0)
[2019-03-12 01:56] LABS: Albumin 3.9 g/dL (3.5-5.7); Albumin/Globulin Ratio 1.1 (1.1-2.2); Bilirubin,Total 0.4 mg/dL (0.3-1.0); Calcium 8.7 mg/dL (8.6-10.3); Globulin 3.4 g/dL (2.4-3.5); Potassium 4.4 mEq/L (3.5-5.1); Total Protein 7.3 g/dL (6.4-8.9)
[2019-03-12 02:10] LABS: Bilirubin,Urine Negative (Negative); Blood,Urine Negative (Negative); Clarity,Urine Clear (Clear); Color,Urine Yellow (Yellow); Glucose,Urine (UA) Normal (Normal); Ketones,Urine Negative (Negative); Leukocyte Esterase,Urine Large (Negative); Nitrite,Urine Negative (Negative); Protein,Urine Negative (Neg-Trace); Urobilinogen,Urine Normal (Normal)
[2019-03-12 02:12] LABS: Bacteria,Urine None Seen per hpf (None-Few); Hyaline Casts,Urine None Seen per lpf (None-Few); RBC,Urine 0-3 per hpf (0-3); Squamous Epithelial Cell,Urine Moderate per lpf (None-Few); WBC,Urine TNTC per hpf (0-3)
[2019-03-12] MEDS ORDERED: Naloxone 0.4 MG/ML INJ IVP PRN (05:50)
[2019-03-12] MEDS ORDERED: Ondansetron 4 MG/2 ML VIAL IVP PRN (05:50)
[2019-03-12] MEDS ORDERED: Nitroglycerin 0.4 MG TAB.SUBL SL PRN (06:35)
[2019-03-12] MEDS ORDERED: Ipratropium/Albuterol Neb 3 ML IH PRN (06:35)
[2019-03-12] MEDS: Budesonide/Formoterol 160/4.5 1 PUFF INH IH SCH ×2 (07:46→20:13)
[2019-03-12] MEDS: predniSONE 20 MG TABLET PO SCH (08:10)
[2019-03-12] MEDS: *HR* Ticagrelor 90 MG TABLET PO SCH ×2 (08:10→21:25)
[2019-03-12] MEDS: Multivit/Ca/Min/Fe/FA 1 TAB TABLET PO SCH (08:10)
[2019-03-12] MEDS: Cholecalciferol (D-3) 1,000 UNIT (25MCG) TABLET PO SCH (08:10)
[2019-03-12] MEDS: Ranolazine 500 MG TAB.ER.12H PO SCH ×2 (08:10→21:25)
[2019-03-12] MEDS: Isosorbide MONOnitrate (24 HR) 60 MG TAB.ER.24H PO SCH (08:10)
[2019-03-12] MEDS: Aspirin Enteric Coated 81 MG Tablet PO SCH (08:11)
[2019-03-12] MEDS ORDERED: INCRUSE ELLIPTA 62.5 MCG IH SCH (09:00)
[2019-03-12] MEDS: Tiotropium 18 MCG inhalation IH SCH (11:20)
[2019-03-12] MEDS ORDERED: *HR* Heparin 5,000 UNIT/ML VIAL IVP PRN ×2 (13:12)
[2019-03-12] MEDS ORDERED: *HR* Heparin 5,000 UNIT/ML VIAL IVP ONE (13:12)
[2019-03-12 13:42] LABS: Hematocrit 30.6 % (37.5-50.1); Hemoglobin 9.9 g/dL (12.9-16.9); Mean Corpuscular HGB Conc 32.4 g/dL (31.6-35.5); Mean Corpuscular Hemoglobin 28.8 pg (28.0-33.3); Mean Platelet Volume 9.1 fL (9.4-12.4); Platelet Count 130 K/mcL (140-400); Red Blood Count 3.44 M/mcL (4.19-5.50); Red Cell Distribution Width 13.9 % (11.5-14.5); White Blood Count 6.3 K/mcL (4.3-11.1)
[2019-03-12 13:52] LABS: Heparin anti-factor XA UFH 0.01 IU/mL (0.30-0.70)
[2019-03-12 13:53] LABS: INR 1.2; Prothrombin Time 13.6 Seconds (9.4-12.1)
[2019-03-12] MEDS: Heparin 25,000 UNIT/250 ML D5W 25,000 UNIT/250 ML IV.SOLN IVC SCH (14:37)
[2019-03-12] MEDS: Insulin DETEMIR 100 UNIT/ML X5UNITS SQ SCH (21:25)
[2019-03-13 02:37] LABS: Basophils % 0.3 %; Eosinophils # 0.1 K/mcL (0.0-0.6); Eosinophils % 1.1 %; Hematocrit 30.1 % (37.5-50.1); Immature Granulocytes % 0.5 % (0-4); Lymphocytes # 1.8 K/mcL (0.6-4.6); Lymphocytes % 24.7 %; Mean Corpuscular HGB Conc 33.2 g/dL (31.6-35.5); Mean Corpuscular Hemoglobin 29.5 pg (28.0-33.3); Mean Corpuscular Volume 88.8 fL (83.0-100.0); Mean Platelet Volume 8.8 fL (9.4-12.4); Monocytes # 0.6 K/mcL (0.0-1.3); Monocytes % 8.3 %; Neutrophils # 4.8 K/mcL (1.6-8.9); Platelet Count 125 K/mcL (140-400); Red Blood Count 3.39 M/mcL (4.19-5.50); Red Cell Distribution Width 13.5 % (11.5-14.5); Segmented Neutrophils % 65.1 %; White Blood Count 7.4 K/mcL (4.3-11.1)
[2019-03-13 02:57] LABS: Calcium 8.9 mg/dL (8.6-10.3); Potassium 3.9 mEq/L (3.5-5.1)
[2019-03-13] MEDS: Budesonide/Formoterol 160/4.5 1 PUFF INH IH SCH ×2 (08:02→22:20)
[2019-03-13] MEDS: Tiotropium 18 MCG inhalation IH SCH (08:02)
[2019-03-13] MEDS: Heparin 25,000 UNIT/250 ML D5W 25,000 UNIT/250 ML IV.SOLN IVC SCH (08:15)
[2019-03-13] MEDS: Cholecalciferol (D-3) 1,000 UNIT (25MCG) TABLET PO SCH (08:51)
[2019-03-13] MEDS: Multivit/Ca/Min/Fe/FA 1 TAB TABLET PO SCH (08:52)
[2019-03-13] MEDS: Aspirin Enteric Coated 81 MG Tablet PO SCH (08:52)
[2019-03-13] MEDS: predniSONE 20 MG TABLET PO SCH (08:52)
[2019-03-13] MEDS: Ranolazine 500 MG TAB.ER.12H PO SCH ×2 (08:52→21:00)
[2019-03-13] MEDS: *HR* Ticagrelor 90 MG TABLET PO SCH ×2 (08:52→21:00)
[2019-03-13] MEDS: Isosorbide MONOnitrate (24 HR) 60 MG TAB.ER.24H PO SCH (08:52)
[2019-03-13] MEDS ORDERED: D5% in Water 1,000 ML IVC PRN (16:29)
[2019-03-13] MEDS ORDERED: *HR* Dextrose 50 % in Water (Syg) 50 ML SYRINGE IVP PRN (16:29)
[2019-03-13] MEDS ORDERED: Dextrose Gel 15 GM/37.5 ML TUBE PO PRN ×2 (16:29)
[2019-03-13] MEDS: Insulin LISPRO 300 UNITS/3 ML VIAL SQ SCH (17:31)
[2019-03-13] MEDS ORDERED: Insulin LISPRO 300 UNITS/3 ML VIAL SQ SCH (21:00)
[2019-03-13] MEDS: Insulin DETEMIR 100 UNIT/ML X5UNITS SQ SCH (21:01)
[2019-03-13] MEDS ORDERED: Acetaminophen 325 MG TABLET PO PRN (21:22)
[2019-03-14 00:57] LABS: Basophils % 0.3 %; Eosinophils # 0.1 K/mcL (0.0-0.6); Eosinophils % 0.9 %; Hematocrit 31.9 % (37.5-50.1); Hemoglobin 10.7 g/dL (12.9-16.9); Immature Granulocytes % 0.8 % (0-4); Lymphocytes # 2.2 K/mcL (0.6-4.6); Lymphocytes % 24.7 %; Mean Corpuscular HGB Conc 33.5 g/dL (31.6-35.5); Mean Corpuscular Hemoglobin 29.6 pg (28.0-33.3); Mean Corpuscular Volume 88.1 fL (83.0-100.0); Mean Platelet Volume 8.9 fL (9.4-12.4); Monocytes # 0.7 K/mcL (0.0-1.3); Monocytes % 8.5 %; Neutrophils # 5.7 K/mcL (1.6-8.9); Platelet Count 160 K/mcL (140-400); Red Blood Count 3.62 M/mcL (4.19-5.50); Red Cell Distribution Width 13.7 % (11.5-14.5); Segmented Neutrophils % 64.8 %; White Blood Count 8.7 K/mcL (4.3-11.1)
[2019-03-14 01:16] LABS: Calcium 9.1 mg/dL (8.6-10.3); Potassium 4.1 mEq/L (3.5-5.1)
[2019-03-14] MEDS: Heparin 25,000 UNIT/250 ML D5W 25,000 UNIT/250 ML IV.SOLN IVC SCH (02:21)
[2019-03-14] MEDS: Tiotropium 18 MCG inhalation IH SCH (07:57)
[2019-03-14] MEDS: Budesonide/Formoterol 160/4.5 1 PUFF INH IH SCH ×2 (07:57→19:52)
[2019-03-14] MEDS: Insulin LISPRO 300 UNITS/3 ML VIAL SQ SCH ×2 (08:05→12:08)
[2019-03-14] MEDS: Isosorbide MONOnitrate (24 HR) 60 MG TAB.ER.24H PO SCH (08:14)
[2019-03-14] MEDS: Multivit/Ca/Min/Fe/FA 1 TAB TABLET PO SCH (08:14)
[2019-03-14] MEDS: predniSONE 20 MG TABLET PO SCH (08:14)
[2019-03-14] MEDS: *HR* Ticagrelor 90 MG TABLET PO SCH ×2 (08:16→21:48)
[2019-03-14] MEDS: Aspirin Enteric Coated 81 MG Tablet PO SCH (08:16)
[2019-03-14] MEDS: Cholecalciferol (D-3) 1,000 UNIT (25MCG) TABLET PO SCH (08:16)
[2019-03-14] MEDS: Ranolazine 500 MG TAB.ER.12H PO SCH ×2 (08:16→21:47)
[2019-03-14] MEDS ORDERED: Insulin LISPRO 300 UNITS/3 ML VIAL SQ SCH ×2 (16:30→21:00)
[2019-03-14] MEDS ORDERED: Ticagrelor [Brilinta] 60 MG PO SCH (21:00)
[2019-03-14] MEDS ORDERED: INSULIN DEGLUDEC 35 UNIT SQ SCH (21:00)
[2019-03-14] MEDS ORDERED: NON-FORMULARY MEDICATION 1 EACH EACH (Ranolazine [Ranexa] 1,000 MG) PO SCH (21:00)
[2019-03-14] MEDS: Insulin DETEMIR 100 UNIT/ML X5UNITS SQ SCH (21:51)
[2019-03-15] MEDS: Insulin LISPRO 300 UNITS/3 ML VIAL SQ SCH ×3 (05:57→18:29)
[2019-03-15] MEDS: Tiotropium 18 MCG inhalation IH SCH (07:29)
[2019-03-15] MEDS: Budesonide/Formoterol 160/4.5 1 PUFF INH IH SCH ×2 (07:29→22:15)
[2019-03-15] MEDS: Multivit/Ca/Min/Fe/FA 1 TAB TABLET PO SCH (08:13)
[2019-03-15] MEDS: Cholecalciferol (D-3) 1,000 UNIT (25MCG) TABLET PO SCH ×2 (08:13)
[2019-03-15] MEDS: *HR* Ticagrelor 90 MG TABLET PO SCH ×2 (08:13→20:00)
[2019-03-15] MEDS: Isosorbide MONOnitrate (24 HR) 60 MG TAB.ER.24H PO SCH (08:13)
[2019-03-15] MEDS: Aspirin Enteric Coated 81 MG Tablet PO SCH (08:13)
[2019-03-15] MEDS: Finasteride 5 MG TABLET PO SCH (08:14)
[2019-03-15] MEDS: predniSONE 20 MG TABLET PO SCH (08:14)
[2019-03-15] MEDS: Ranolazine 500 MG TAB.ER.12H PO SCH ×2 (08:14→20:00)
[2019-03-15] MEDS: Vitamin E 200 UNIT (90MG) CAPSULE PO SCH (08:14)
[2019-03-15 22:06] LABS: Bilirubin,Urine Negative (Negative); Blood,Urine Negative (Negative); Clarity,Urine Clear (Clear); Color,Urine Yellow (Yellow); Glucose,Urine (UA) 100 mg/dL (Normal); Ketones,Urine Negative (Negative); Leukocyte Esterase,Urine Small (Negative); Nitrite,Urine Negative (Negative); PH,Urine 5.5 pH Units (5.0-8.0); Protein,Urine Negative (Neg-Trace); Specific Gravity,Urine 1.018 (1.010-1.025); Urobilinogen,Urine Normal (Normal)
[2019-03-15 22:09] LABS: Bacteria,Urine None Seen per hpf (None-Few); Hyaline Casts,Urine None Seen per lpf (None-Few); RBC,Urine 0-3 per hpf (0-3); Squamous Epithelial Cell,Urine Many per lpf (None-Few); WBC,Urine 15-30 per hpf (0-3)
[2019-03-16] MEDS: Insulin LISPRO 300 UNITS/3 ML VIAL SQ SCH ×4 (00:41→16:47)
[2019-03-16] MEDS: Cholecalciferol (D-3) 1,000 UNIT (25MCG) TABLET PO SCH ×2 (09:51)
[2019-03-16] MEDS: Vitamin E 200 UNIT (90MG) CAPSULE PO SCH (09:51)
[2019-03-16] MEDS: Isosorbide MONOnitrate (24 HR) 60 MG TAB.ER.24H PO SCH (09:52)
[2019-03-16] MEDS: predniSONE 20 MG TABLET PO SCH (09:52)
[2019-03-16] MEDS: Ranolazine 500 MG TAB.ER.12H PO SCH ×2 (09:52→20:42)
[2019-03-16] MEDS: Multivit/Ca/Min/Fe/FA 1 TAB TABLET PO SCH (09:52)
[2019-03-16] MEDS: Aspirin Enteric Coated 81 MG Tablet PO SCH (09:52)
[2019-03-16] MEDS: *HR* Ticagrelor 90 MG TABLET PO SCH ×2 (09:52→20:42)
[2019-03-16] MEDS: Finasteride 5 MG TABLET PO SCH (09:53)
[2019-03-16] MEDS: Tiotropium 18 MCG inhalation IH SCH (10:16)
[2019-03-16] MEDS: Budesonide/Formoterol 160/4.5 1 PUFF INH IH SCH ×2 (10:16→19:51)
[2019-03-16] MEDS ORDERED: Linezolid 600 MG TABLET PO SCH (13:45)
[2019-03-16] MEDS: Amoxicillin 500 MG CAPSULE PO SCH ×2 (14:25→20:42)
[2019-03-17] MEDS: Insulin LISPRO 300 UNITS/3 ML VIAL SQ SCH ×2 (01:00→05:53)
[2019-03-17 03:17] LABS: Basophils % 0.3 %; Eosinophils # 0.1 K/mcL (0.0-0.6); Hematocrit 30.7 % (37.5-50.1); Hemoglobin 10.2 g/dL (12.9-16.9); Immature Granulocytes % 0.5 % (0-4); Lymphocytes # 1.7 K/mcL (0.6-4.6); Lymphocytes % 22.3 %; Mean Corpuscular HGB Conc 33.2 g/dL (31.6-35.5); Mean Corpuscular Volume 87.2 fL (83.0-100.0); Mean Platelet Volume 8.6 fL (9.4-12.4); Monocytes # 0.6 K/mcL (0.0-1.3); Monocytes % 7.5 %; Neutrophils # 5.2 K/mcL (1.6-8.9); Platelet Count 151 K/mcL (140-400); Red Blood Count 3.52 M/mcL (4.19-5.50); Red Cell Distribution Width 13.9 % (11.5-14.5); Segmented Neutrophils % 68.4 %; White Blood Count 7.6 K/mcL (4.3-11.1)
[2019-03-17 03:35] LABS: Calcium 9.2 mg/dL (8.6-10.3); Magnesium 1.8 mg/dL (1.6-2.6); Phosphorous 3.8 mg/dL (2.7-4.5); Potassium 4.1 mEq/L (3.5-5.1)
[2019-03-17] MEDS: Vitamin E 200 UNIT (90MG) CAPSULE PO SCH (07:38)
[2019-03-17] MEDS: Multivit/Ca/Min/Fe/FA 1 TAB TABLET PO SCH (07:38)
[2019-03-17] MEDS: predniSONE 20 MG TABLET PO SCH (07:38)
[2019-03-17] MEDS: Ranolazine 500 MG TAB.ER.12H PO SCH (07:38)
[2019-03-17] MEDS: Isosorbide MONOnitrate (24 HR) 60 MG TAB.ER.24H PO SCH (07:39)
[2019-03-17] MEDS: Finasteride 5 MG TABLET PO SCH (07:39)
[2019-03-17] MEDS: *HR* Ticagrelor 90 MG TABLET PO SCH (07:39)
[2019-03-17] MEDS: Aspirin Enteric Coated 81 MG Tablet PO SCH (07:39)
[2019-03-17] MEDS: Amoxicillin 500 MG CAPSULE PO SCH (07:39)
[2019-03-17] MEDS: Cholecalciferol (D-3) 1,000 UNIT (25MCG) TABLET PO SCH (07:40)
[2019-03-17] MEDS: Budesonide/Formoterol 160/4.5 1 PUFF INH IH SCH (09:47)
[2019-03-17] MEDS: Tiotropium 18 MCG inhalation IH SCH (09:48)
[2019-03-17] MEDS ORDERED: Insulin LISPRO 300 UNITS/3 ML VIAL SQ SCH ×2 (11:30→21:00)
[2019-03-17 11:38] VITALS: BP 112/58
== END 2019-03-17 13:30 | disposition home or self-care (01) | DRG 312 ==
LOC: EMEROOARM 23:37 → 3BNU 23:37 → SUATTDRO 03-12 04:19 → 3BNU 03-12 04:33
PROVIDERS: ADMIT Family Medicine; ATTEND Internal Medicine

== ENCOUNTER 2019-06-01 21:17 | Inpatient (IN) ==
[2019-06-01 22:24] LABS: Basophils % 0.4 %; Eosinophils # 0.2 K/mcL (0.0-0.6); Eosinophils % 2.5 %; Hematocrit 35.3 % (37.5-50.1); Immature Granulocytes % 0.4 % (0-4); Lymphocytes # 1.4 K/mcL (0.6-4.6); Lymphocytes % 18.7 %; Mean Corpuscular HGB Conc 31.2 g/dL (31.6-35.5); Mean Corpuscular Hemoglobin 27.8 pg (28.0-33.3); Mean Corpuscular Volume 89.4 fL (83.0-100.0); Mean Platelet Volume 9.4 fL (9.4-12.4); Monocytes # 0.4 K/mcL (0.0-1.3); Monocytes % 5.4 %; Neutrophils # 5.6 K/mcL (1.6-8.9); Platelet Count 147 K/mcL (140-400); Red Blood Count 3.95 M/mcL (4.19-5.50); Red Cell Distribution Width 14.7 % (11.5-14.5); Segmented Neutrophils % 72.6 %; White Blood Count 7.7 K/mcL (4.3-11.1)
[2019-06-01 22:30] LABS: INR 1.2; Prothrombin Time 13.6 Seconds (9.4-12.1)
[2019-06-01 22:48] LABS: BUN/Creatinine Ratio 26 (6-26); Blood Urea Nitrogen 35 mg/dL (8-23); Calcium 9.8 mg/dL (8.6-10.3); Carbon Dioxide 27 mEq/L (23-29); Chloride 101 mEq/L (98-107); Glucose 200 mg/dL (70-105); Osmolality,Calculated 296 (280-300); Potassium 5.2 mEq/L (3.5-5.1); Sodium 136 mEq/L (136-145); Troponin I 0.03 ng/mL (< 0.04); eGFR For African Americans > 60 (> 60); eGFR For Non-African Americans 51 (> 60)
[2019-06-01 23:33] LABS: Bilirubin,Urine Negative (Negative); Blood,Urine Negative (Negative); Clarity,Urine Cloudy (Clear); Color,Urine Yellow (Yellow); Glucose,Urine (UA) Normal (Normal); Ketones,Urine Negative (Negative); Leukocyte Esterase,Urine Moderate (Negative); Nitrite,Urine Negative (Negative); PH,Urine 6.5 pH Units (5.0-8.0); Protein,Urine 30 mg/dL (Neg-Trace); Specific Gravity,Urine 1.022 (1.010-1.025); Urobilinogen,Urine Normal (Normal)
[2019-06-01 23:36] LABS: Bacteria,Urine None Seen per hpf (None-Few); Hyaline Casts,Urine None Seen per lpf (None-Few); Squamous Epithelial Cell,Urine Moderate per lpf (None-Few); WBC,Urine 50-100 per hpf (0-3)
[2019-06-02] MEDS ORDERED: Naloxone 0.4 MG/ML INJ IVP PRN (02:02)
[2019-06-02] MEDS ORDERED: 0.9 % Sodium Chloride 1,000 ML IVC SCH (02:15)
[2019-06-02 02:50] LABS: Basophils % 0.3 %; Eosinophils # 0.2 K/mcL (0.0-0.6); Eosinophils % 2.4 %; Hematocrit 32.6 % (37.5-50.1); Hemoglobin 10.7 g/dL (12.9-16.9); Immature Granulocytes % 0.5 % (0-4); Immature Reticulocyte % 12.5 % (11.0-38.0); Lymphocytes # 1.6 K/mcL (0.6-4.6); Mean Corpuscular HGB Conc 32.8 g/dL (31.6-35.5); Mean Corpuscular Hemoglobin 28.1 pg (28.0-33.3); Mean Corpuscular Volume 85.6 fL (83.0-100.0); Mean Platelet Volume 8.7 fL (9.4-12.4); Monocytes # 0.5 K/mcL (0.0-1.3); Monocytes % 7.5 %; Platelet Count 141 K/mcL (140-400); Red Blood Count 3.81 M/mcL (4.19-5.50); Red Cell Distribution Width 14.7 % (11.5-14.5); Retculocyte # 0.06 M/mcL (0.05-0.10); Reticulocyte % 1.5 % (1.6-2.8); Segmented Neutrophils % 63.3 %; White Blood Count 6.2 K/mcL (4.3-11.1)
[2019-06-02 02:54] LABS: INR 1.2; Prothrombin Time 14.1 Seconds (9.4-12.1)
[2019-06-02 03:11] LABS: % Iron Saturation 11 % (20-55); Alanine Aminotransferase 14 Units/L (7-52); Albumin 3.6 g/dL (3.5-5.7); Albumin/Globulin Ratio 1.1 (1.1-2.2); Alkaline Phosphatase 70 Units/L (34-104); Aspartate Amino Transferase 16 Units/L (13-39); BUN/Creatinine Ratio 25 (6-26); Bilirubin,Total 0.5 mg/dL (0.3-1.0); Blood Urea Nitrogen 33 mg/dL (8-23); Calcium 9.3 mg/dL (8.6-10.3); Carbon Dioxide 25 mEq/L (23-29); Chloride 108 mEq/L (98-107); Chol/HDL Ratio 2.1 (0-4.9); Cholesterol 104 mg/dL (< 200); Globulin 3.4 g/dL (2.4-3.5); Glucose 95 mg/dL (70-105); HDL Cholesterol 49 mg/dL (40-59); Iron 41 mcg/dL (65-175); LDL Cholesterol,Calculated 27 mg/dL (0-99); Magnesium 1.7 mg/dL (1.6-2.6); Osmolality,Calculated 297 (280-300); Phosphorous 3.2 mg/dL (2.7-4.5); Potassium 4.7 mEq/L (3.5-5.1); Sodium 140 mEq/L (136-145); Transferrin 268 mg/dL (203-362); Triglycerides 138 mg/dL (< 150); eGFR For African Americans > 60 (> 60); eGFR For Non-African Americans 54 (> 60)
[2019-06-02 03:24] LABS: Thyroid Stimulating Hormone 1.949 mcIU/mL (0.340-5.600)
[2019-06-02 03:30] LABS: Ferritin 19 ng/mL (20-250)
[2019-06-02 03:38] LABS: Folate > 22.3 ng/mL (3.0-16.0); Vitamin B12 539 pg/mL (250-1100)
[2019-06-02] MEDS ORDERED: NON-FORMULARY MEDICATION 1 EACH EACH (Ipratropium/Albuterol Sulfate [Combivent Respimat In IH PRN (07:55)
[2019-06-02] MEDS ORDERED: Nitroglycerin 0.4 MG TAB.SUBL SL PRN (07:55)
[2019-06-02] MEDS ORDERED: D5% in Water 1,000 ML IVC PRN (07:57)
[2019-06-02] MEDS ORDERED: *HR* Dextrose 50 % in Water (Syg) 50 ML SYRINGE IVP PRN (07:57)
[2019-06-02] MEDS ORDERED: Dextrose Gel 15 GM/37.5 ML TUBE PO PRN ×2 (07:57)
[2019-06-02] MEDS: Vitamin E 200 UNIT (90MG) CAPSULE PO SCH (09:51)
[2019-06-02] MEDS: Aspirin Enteric Coated 81 MG Tablet PO SCH (09:51)
[2019-06-02] MEDS: Ranolazine 500 MG TAB.ER.12H PO SCH ×2 (09:51→20:21)
[2019-06-02] MEDS: Finasteride 5 MG TABLET PO SCH (09:51)
[2019-06-02] MEDS: *HR* Ticagrelor 90 MG TABLET PO SCH ×2 (09:51→20:20)
[2019-06-02] MEDS: Multivit/Ca/Min/Fe/FA 1 TAB TABLET PO SCH (09:53)
[2019-06-02] MEDS: Isosorbide MONOnitrate (24 HR) 60 MG TAB.ER.24H PO SCH (09:53)
[2019-06-02] MEDS: Cholecalciferol (D-3) 1,000 UNIT (25MCG) TABLET PO SCH (09:53)
[2019-06-02] MEDS: Tiotropium 18 MCG inhalation IH SCH (10:48)
[2019-06-02] MEDS: Budesonide/Formoterol 160/4.5 1 PUFF INH IH SCH ×2 (10:48→20:56)
[2019-06-02 10:59] LABS: Estimated Average Glucose 140 mg/dl
[2019-06-02] MEDS: Insulin LISPRO 300 UNITS/3 ML VIAL SQ SCH ×3 (11:48→20:19)
[2019-06-02] MEDS ORDERED: Levalbuterol 1 PUFF INHALER IH PRN (12:00)
[2019-06-02] MEDS: Insulin DETEMIR 100 UNIT/ML X5UNITS SQ SCH (20:27)
[2019-06-03 02:54] LABS: Albumin 3.5 g/dL (3.5-5.7); Albumin/Globulin Ratio 1.1 (1.1-2.2); Bilirubin,Total 0.5 mg/dL (0.3-1.0); Calcium 9.1 mg/dL (8.6-10.3); Globulin 3.1 g/dL (2.4-3.5); Potassium 4.3 mEq/L (3.5-5.1); Total Protein 6.6 g/dL (6.4-8.9)
[2019-06-03] MEDS: Budesonide/Formoterol 160/4.5 1 PUFF INH IH SCH ×2 (08:15→20:40)
[2019-06-03] MEDS: Tiotropium 18 MCG inhalation IH SCH (08:15)
[2019-06-03] MEDS: Insulin LISPRO 300 UNITS/3 ML VIAL SQ SCH ×4 (09:30→20:59)
[2019-06-03] MEDS: Ranolazine 500 MG TAB.ER.12H PO SCH ×2 (09:32→21:00)
[2019-06-03] MEDS: Vitamin E 200 UNIT (90MG) CAPSULE PO SCH (09:32)
[2019-06-03] MEDS: Aspirin Enteric Coated 81 MG Tablet PO SCH (09:32)
[2019-06-03] MEDS: Multivit/Ca/Min/Fe/FA 1 TAB TABLET PO SCH (09:32)
[2019-06-03] MEDS: Cholecalciferol (D-3) 1,000 UNIT (25MCG) TABLET PO SCH (09:32)
[2019-06-03] MEDS: *HR* Ticagrelor 90 MG TABLET PO SCH ×2 (09:32→21:00)
[2019-06-03] MEDS: Isosorbide MONOnitrate (24 HR) 60 MG TAB.ER.24H PO SCH (09:32)
[2019-06-03] MEDS: Finasteride 5 MG TABLET PO SCH (09:32)
[2019-06-03] MEDS: *HR* Heparin 5,000 UNIT/ML VIAL SQ SCH (17:57)
[2019-06-03] MEDS: Insulin DETEMIR 100 UNIT/ML X5UNITS SQ SCH (21:01)
[2019-06-04] MEDS: *HR* Heparin 5,000 UNIT/ML VIAL SQ SCH ×2 (05:47→17:17)
[2019-06-04] MEDS: Budesonide/Formoterol 160/4.5 1 PUFF INH IH SCH ×2 (08:01→20:27)
[2019-06-04] MEDS: Tiotropium 18 MCG inhalation IH SCH (08:03)
[2019-06-04] MEDS: Aspirin Enteric Coated 81 MG Tablet PO SCH (10:01)
[2019-06-04] MEDS: Insulin LISPRO 300 UNITS/3 ML VIAL SQ SCH ×4 (10:01→20:52)
[2019-06-04] MEDS: Isosorbide MONOnitrate (24 HR) 60 MG TAB.ER.24H PO SCH (10:02)
[2019-06-04] MEDS: *HR* Ticagrelor 90 MG TABLET PO SCH ×2 (10:02→20:57)
[2019-06-04] MEDS: Finasteride 5 MG TABLET PO SCH (10:02)
[2019-06-04] MEDS: Ranolazine 500 MG TAB.ER.12H PO SCH ×2 (10:02→20:59)
[2019-06-04] MEDS: Vitamin E 200 UNIT (90MG) CAPSULE PO SCH (10:02)
[2019-06-04] MEDS: Cholecalciferol (D-3) 1,000 UNIT (25MCG) TABLET PO SCH (10:02)
[2019-06-04] MEDS: Multivit/Ca/Min/Fe/FA 1 TAB TABLET PO SCH (10:03)
[2019-06-04 15:29] LABS: Basophils % 0.7 %; Eosinophils # 0.2 K/mcL (0.0-0.6); Eosinophils % 3.1 %; Hematocrit 33.9 % (37.5-50.1); Hemoglobin 11.3 g/dL (12.9-16.9); Immature Granulocytes % 0.9 % (0-4); Immature Platelets 1.3 % (1.1-6.1); Lymphocytes # 1.4 K/mcL (0.6-4.6); Lymphocytes % 24.4 %; Mean Corpuscular HGB Conc 33.3 g/dL (31.6-35.5); Mean Corpuscular Volume 84.1 fL (83.0-100.0); Mean Platelet Volume 8.9 fL (9.4-12.4); Monocytes # 0.4 K/mcL (0.0-1.3); Monocytes % 7.2 %; Neutrophils # 3.7 K/mcL (1.6-8.9); Platelet Count 149 K/mcL (140-400); Red Blood Count 4.03 M/mcL (4.19-5.50); Red Cell Distribution Width 14.6 % (11.5-14.5); Segmented Neutrophils % 63.7 %; White Blood Count 5.8 K/mcL (4.3-11.1)
[2019-06-04 15:46] LABS: Calcium 8.9 mg/dL (8.6-10.3); Potassium 4.9 mEq/L (3.5-5.1)
[2019-06-04] MEDS: Insulin DETEMIR 100 UNIT/ML X5UNITS SQ SCH (20:56)
[2019-06-05] MEDS: *HR* Heparin 5,000 UNIT/ML VIAL SQ SCH ×2 (06:01→17:39)
[2019-06-05] MEDS: Insulin LISPRO 300 UNITS/3 ML VIAL SQ SCH ×4 (08:23→20:56)
[2019-06-05] MEDS: Budesonide/Formoterol 160/4.5 1 PUFF INH IH SCH ×2 (08:24→21:59)
[2019-06-05] MEDS: Tiotropium 18 MCG inhalation IH SCH (08:24)
[2019-06-05] MEDS: Aspirin Enteric Coated 81 MG Tablet PO SCH (08:32)
[2019-06-05] MEDS: Multivit/Ca/Min/Fe/FA 1 TAB TABLET PO SCH (08:32)
[2019-06-05] MEDS: Cholecalciferol (D-3) 1,000 UNIT (25MCG) TABLET PO SCH (08:32)
[2019-06-05] MEDS: Vitamin E 200 UNIT (90MG) CAPSULE PO SCH (08:33)
[2019-06-05] MEDS: Finasteride 5 MG TABLET PO SCH (08:33)
[2019-06-05] MEDS: Isosorbide MONOnitrate (24 HR) 60 MG TAB.ER.24H PO SCH (08:33)
[2019-06-05] MEDS: *HR* Ticagrelor 90 MG TABLET PO SCH ×2 (08:33→20:55)
[2019-06-05] MEDS: Ranolazine 500 MG TAB.ER.12H PO SCH ×2 (08:37→20:56)
[2019-06-05] MEDS: Insulin DETEMIR 100 UNIT/ML X5UNITS SQ SCH (20:56)
[2019-06-06] MEDS: *HR* Heparin 5,000 UNIT/ML VIAL SQ SCH ×2 (05:41→17:22)
[2019-06-06 07:13] LABS: Calcium 9.2 mg/dL (8.6-10.3); Potassium 4.2 mEq/L (3.5-5.1)
[2019-06-06] MEDS: Insulin LISPRO 300 UNITS/3 ML VIAL SQ SCH ×4 (09:39→21:44)
[2019-06-06] MEDS: Cholecalciferol (D-3) 1,000 UNIT (25MCG) TABLET PO SCH (09:53)
[2019-06-06] MEDS: Ranolazine 500 MG TAB.ER.12H PO SCH ×2 (09:53→21:43)
[2019-06-06] MEDS: Vitamin E 200 UNIT (90MG) CAPSULE PO SCH (09:53)
[2019-06-06] MEDS: Isosorbide MONOnitrate (24 HR) 60 MG TAB.ER.24H PO SCH (09:53)
[2019-06-06] MEDS: Finasteride 5 MG TABLET PO SCH (09:53)
[2019-06-06] MEDS: Aspirin Enteric Coated 81 MG Tablet PO SCH (09:53)
[2019-06-06] MEDS: *HR* Ticagrelor 90 MG TABLET PO SCH ×2 (09:54→21:43)
[2019-06-06] MEDS: Multivit/Ca/Min/Fe/FA 1 TAB TABLET PO SCH (09:55)
[2019-06-06] MEDS: Tiotropium 18 MCG inhalation IH SCH (10:51)
[2019-06-06] MEDS: Budesonide/Formoterol 160/4.5 1 PUFF INH IH SCH ×2 (10:51→21:27)
[2019-06-06] MEDS: Insulin DETEMIR 100 UNIT/ML X5UNITS SQ SCH (21:44)
[2019-06-07] MEDS: *HR* Heparin 5,000 UNIT/ML VIAL SQ SCH (05:40)
[2019-06-07 06:42] LABS: Hematocrit 34.4 % (37.5-50.1); Hemoglobin 11.2 g/dL (12.9-16.9); Mean Corpuscular HGB Conc 32.6 g/dL (31.6-35.5); Mean Corpuscular Hemoglobin 28.1 pg (28.0-33.3); Mean Corpuscular Volume 86.2 fL (83.0-100.0); Mean Platelet Volume 9.3 fL (9.4-12.4); Platelet Count 152 K/mcL (140-400); Red Blood Count 3.99 M/mcL (4.19-5.50); Red Cell Distribution Width 14.8 % (11.5-14.5); White Blood Count 6.5 K/mcL (4.3-11.1)
[2019-06-07 07:05] LABS: Calcium 9.3 mg/dL (8.6-10.3); Potassium 4.3 mEq/L (3.5-5.1)
[2019-06-07] MEDS: Budesonide/Formoterol 160/4.5 1 PUFF INH IH SCH (08:06)
[2019-06-07] MEDS: Tiotropium 18 MCG inhalation IH SCH (08:06)
[2019-06-07] MEDS: Ranolazine 500 MG TAB.ER.12H PO SCH (08:48)
[2019-06-07] MEDS: Vitamin E 200 UNIT (90MG) CAPSULE PO SCH (08:49)
[2019-06-07] MEDS: Finasteride 5 MG TABLET PO SCH (08:49)
[2019-06-07] MEDS: Multivit/Ca/Min/Fe/FA 1 TAB TABLET PO SCH (08:49)
[2019-06-07] MEDS: *HR* Ticagrelor 90 MG TABLET PO SCH (08:49)
[2019-06-07] MEDS: Aspirin Enteric Coated 81 MG Tablet PO SCH (08:49)
[2019-06-07] MEDS: Isosorbide MONOnitrate (24 HR) 60 MG TAB.ER.24H PO SCH (08:49)
[2019-06-07] MEDS: Cholecalciferol (D-3) 1,000 UNIT (25MCG) TABLET PO SCH (08:49)
[2019-06-07] MEDS: Insulin LISPRO 300 UNITS/3 ML VIAL SQ SCH ×2 (08:50→12:46)
[2019-06-07 11:10] VITALS: BP 129/65
== END 2019-06-07 13:35 | disposition home health service (06) | DRG 552 ==
LOC: 3BNU 21:17 → EMEROOARM 21:17 → 3BNU 06-02 00:45
PROVIDERS: ADMIT Internal Medicine; ATTEND Internal Medicine

== ENCOUNTER 2020-03-11 14:51 | Inpatient (IN) ==
[2020-03-11] MEDS ORDERED: Azithromycin 500 MG in D5% in Water 250 ML IVPB ONE (15:22)
[2020-03-11] MEDS ORDERED: Dexamethasone 4 MG/ML VIAL IVP ONE (15:22)
[2020-03-11 15:48] LABS: Basophils % 0.2 %; Eosinophils % 0.1 %; Hematocrit 42.2 % (37.5-50.1); Hemoglobin 13.3 g/dL (12.9-16.9); INR 1.1; Immature Granulocytes % 0.5 % (0-4); Lymphocytes # 1.2 K/mcL (0.6-4.6); Lymphocytes % 12.8 %; Mean Corpuscular HGB Conc 31.5 g/dL (31.6-35.5); Mean Corpuscular Hemoglobin 28.8 pg (28.0-33.3); Mean Corpuscular Volume 91.3 fL (83.0-100.0); Mean Platelet Volume 9.2 fL (9.4-12.4); Monocytes # 0.5 K/mcL (0.0-1.3); Monocytes % 5.2 %; Neutrophils # 7.6 K/mcL (1.6-8.9); Platelet Count 158 K/mcL (140-400); Prothrombin Time 12.6 Seconds (9.4-12.1); Red Blood Count 4.62 M/mcL (4.19-5.50); Segmented Neutrophils % 81.2 %; White Blood Count 9.3 K/mcL (4.3-11.1)
[2020-03-11 15:49] LABS: Activated Partial Thrombo Time 21.5 Seconds (26.0-36.0)
[2020-03-11 16:03] LABS: Alanine Aminotransferase 17 Units/L (7-52); Albumin 4.2 g/dL (3.5-5.7); Albumin/Globulin Ratio 1.2 (1.1-2.2); Alkaline Phosphatase 49 Units/L (34-104); Aspartate Amino Transferase 21 Units/L (13-39); BUN/Creatinine Ratio 18 (6-26); Bilirubin,Direct 0.1 mg/dL (0.0-0.2); Bilirubin,Indirect 0.5 mg/dL (0.0-1.0); Bilirubin,Total 0.6 mg/dL (0.3-1.0); Blood Urea Nitrogen 23 mg/dL (8-23); C-Reactive Protein < 5 mg/L (Less than 10); Carbon Dioxide 27 mEq/L (23-29); Chloride 101 mEq/L (98-107); Globulin 3.4 g/dL (2.4-3.5); Glucose 169 mg/dL (70-105); Lactate Dehydrogenase 160 Units/L (140-271); Osmolality,Calculated 294 (280-300); Potassium 4.2 mEq/L (3.5-5.1); Sodium 138 mEq/L (136-145); Total Protein 7.6 g/dL (6.4-8.9); eGFR For African Americans > 60 (> 60); eGFR For Non-African Americans 55 (> 60)
[2020-03-11] MEDS ORDERED: Isovue-370 500 ML BOTTLE IVP ONE (16:08)
[2020-03-11 16:22] LABS: Adenovirus Not Detected (Not Detect); Coronavirus 229E Not Detected (Not Detect); Coronavirus HKU1 Not Detected (Not Detect); Coronavirus NL63 Not Detected (Not Detect); Coronavirus OC43 Not Detected (Not Detect); Human Metapneumovirus Not Detected (Not Detect); Human Rhinovirus/Enterovirus Not Detected (Not Detect); Influenza A Subtype 2009 H1 Not Detected (Not Detect)
[2020-03-11 16:23] LABS: Bordetella Pertussis Not Detected (Not Detect); Chlamydophila pneumoniae Not Detected (Not Detect); Influenza B Not Detected (Not Detect); Mycoplasma pneumoniae Not Detected (Not Detect); Parainfluenza Virus 1 Not Detected (Not Detect); Parainfluenza Virus 2 DETECTED (Not Detect); Parainfluenza Virus 3 Not Detected (Not Detect); Parainfluenza Virus 4 Not Detected (Not Detect); Respiratory Syncytial Virus Not Detected (Not Detect)
[2020-03-11] MEDS ORDERED: Ondansetron 4 MG/2 ML VIAL IVP PRN (16:58)
[2020-03-11] MEDS ORDERED: *HR* Dextrose 50 % in Water (Vial) 50 ML VIAL IVP PRN (16:58)
[2020-03-11] MEDS ORDERED: Naloxone 0.4 MG/ML INJ IVP PRN (16:58)
[2020-03-11] MEDS ORDERED: D5% in Water 1,000 ML IVC PRN (16:58)
[2020-03-11] MEDS ORDERED: Dextrose Gel 15 GM/37.5 ML TUBE PO PRN ×2 (16:58)
[2020-03-11] MEDS ORDERED: Acetaminophen 325 MG TABLET PO PRN (16:58)
[2020-03-11] MEDS ORDERED: Aspirin 81 MG TAB.CHEW PO SCH (17:00)
[2020-03-11] MEDS ORDERED: Ipratropium/Albuterol Neb 3 ML IH PRN (17:02)
[2020-03-11] MEDS: *HR* Heparin 5,000 UNIT/ML VIAL SQ SCH (17:58)
[2020-03-11 18:22] LABS: VBG HCO3 26 mEq/L (21-27); VBG PCO2 41 mmHg (41-51); VBG PH 7.42 pH Units (7.32-7.42); VBG PO2 174 mmHg (25-50)
[2020-03-11 20:27] LABS: Bacteria,Urine Few per hpf (None-Few); Bilirubin,Urine Negative (Negative); Blood,Urine Moderate (Negative); Clarity,Urine Clear (Clear); Color,Urine Yellow (Yellow); Glucose,Urine (UA) Normal (Normal); Ketones,Urine Negative (Negative); Leukocyte Esterase,Urine Negative (Negative); Nitrite,Urine Negative (Negative); Protein,Urine 200 mg/dL (Neg-Trace); RBC,Urine 15-30 per hpf (0-3); Specific Gravity,Urine > 1.030 (1.010-1.025); Squamous Epithelial Cell,Urine Few per hpf (None-Few); Urobilinogen,Urine Normal (Normal); WBC,Urine 15-30 per hpf (0-3)
[2020-03-11] MEDS ORDERED: Insulin DETEMIR 100 UNIT/ML X5UNITS SQ SCH (21:00)
[2020-03-11] MEDS: Ipratropium/Albuterol Neb 3 ML IH SCH (21:51)
[2020-03-12 03:06] LABS: Basophils % 0.1 %; Hematocrit 39.9 % (37.5-50.1); Hemoglobin 12.8 g/dL (12.9-16.9); Immature Granulocytes % 0.5 % (0-4); Lymphocytes % 12.4 %; Mean Corpuscular HGB Conc 32.1 g/dL (31.6-35.5); Mean Corpuscular Hemoglobin 29.2 pg (28.0-33.3); Mean Corpuscular Volume 91.1 fL (83.0-100.0); Mean Platelet Volume 9.1 fL (9.4-12.4); Monocytes # 0.4 K/mcL (0.0-1.3); Monocytes % 5.7 %; Neutrophils # 6.3 K/mcL (1.6-8.9); Platelet Count 137 K/mcL (140-400); Red Blood Count 4.38 M/mcL (4.19-5.50); Segmented Neutrophils % 81.3 %; White Blood Count 7.7 K/mcL (4.3-11.1)
[2020-03-12 03:27] LABS: BUN/Creatinine Ratio 20 (6-26); Blood Urea Nitrogen 25 mg/dL (8-23); Calcium 8.6 mg/dL (8.6-10.3); Carbon Dioxide 27 mEq/L (23-29); Chloride 102 mEq/L (98-107); Glucose 187 mg/dL (70-105); Magnesium 1.6 mg/dL (1.6-2.6); Osmolality,Calculated 293 (280-300); Phosphorous 2.6 mg/dL (2.7-4.5); Potassium 4.1 mEq/L (3.5-5.1); Sodium 137 mEq/L (136-145); eGFR For African Americans > 60 (> 60); eGFR For Non-African Americans 54 (> 60)
[2020-03-12] MEDS: Ipratropium/Albuterol Neb 3 ML IH SCH ×4 (03:44→21:20)
[2020-03-12] MEDS: *HR* Heparin 5,000 UNIT/ML VIAL SQ SCH ×2 (05:48→16:44)
[2020-03-12] MEDS ORDERED: MethylPREDNISolone 40 MG/ML VIAL IVP SCH ×2 (08:00→09:00)
[2020-03-12] MEDS ORDERED: Ampicillin/Sulbactam 1,500 MG in 0.9 % Sodium Chloride Mini Bag 100 ML IVPB SCH (08:00)
[2020-03-12] MEDS ORDERED: TICAGRELOR 60 MG PO SCH (09:00)
[2020-03-12] MEDS ORDERED: Aspirin Enteric Coated 81 MG Tablet PO SCH (09:00)
[2020-03-12] MEDS: Ranolazine 500 MG TAB.ER.12H PO SCH ×2 (09:17→20:10)
[2020-03-12] MEDS: Isosorbide MONOnitrate (24 HR) 60 MG TAB.ER.24H PO SCH (09:17)
[2020-03-12] MEDS: Finasteride 5 MG TABLET PO SCH (09:17)
[2020-03-12] MEDS: Cholecalciferol (D-3) 1,000 UNIT (25MCG) TABLET PO SCH (09:33)
[2020-03-12] MEDS: Insulin LISPRO 300 UNITS/3 ML VIAL SQ SCH ×3 (09:46→16:45)
[2020-03-12] MEDS: Tiotropium 18 MCG inhalation IH SCH (09:59)
[2020-03-12] MEDS: Budesonide/Formoterol 160/4.5 1 PUFF INH IH SCH ×2 (10:50→21:20)
[2020-03-12] MEDS: Ampicillin/Sulbactam 1,500 MG in 0.9 % Sodium Chloride Mini Bag 100 ML IVPB SCH ×3 (11:48→20:10)
[2020-03-12] MEDS: *HR* Ticagrelor 90 MG TABLET PO SCH ×2 (11:55→20:10)
[2020-03-12] MEDS: Insulin DETEMIR 100 UNIT/ML X5UNITS SQ SCH (20:10)
[2020-03-13 00:54] LABS: Hematocrit 40.6 % (37.5-50.1); Hemoglobin 12.9 g/dL (12.9-16.9); Immature Platelets 1.9 % (1.1-6.1); Mean Corpuscular HGB Conc 31.8 g/dL (31.6-35.5); Mean Corpuscular Hemoglobin 29.3 pg (28.0-33.3); Mean Corpuscular Volume 92.1 fL (83.0-100.0); Mean Platelet Volume 9.4 fL (9.4-12.4); Red Blood Count 4.41 M/mcL (4.19-5.50); White Blood Count 7.2 K/mcL (4.3-11.1)
[2020-03-13 01:13] LABS: BUN/Creatinine Ratio 24 (6-26); Blood Urea Nitrogen 33 mg/dL (8-23); Calcium 8.7 mg/dL (8.6-10.3); Carbon Dioxide 27 mEq/L (23-29); Chloride 101 mEq/L (98-107); Glucose 164 mg/dL (70-105); Osmolality,Calculated 293 (280-300); Potassium 4.2 mEq/L (3.5-5.1); Sodium 136 mEq/L (136-145); eGFR For African Americans > 60 (> 60); eGFR For Non-African Americans 51 (> 60)
[2020-03-13] MEDS: Ampicillin/Sulbactam 1,500 MG in 0.9 % Sodium Chloride Mini Bag 100 ML IVPB SCH ×5 (02:04→23:47)
[2020-03-13] MEDS: Ipratropium/Albuterol Neb 3 ML IH SCH ×4 (03:15→21:48)
[2020-03-13] MEDS: *HR* Heparin 5,000 UNIT/ML VIAL SQ SCH ×2 (05:28→17:56)
[2020-03-13] MEDS: Insulin LISPRO 300 UNITS/3 ML VIAL SQ SCH ×3 (08:08→17:11)
[2020-03-13] MEDS: *HR* Ticagrelor 90 MG TABLET PO SCH ×2 (08:09→20:02)
[2020-03-13] MEDS: Aspirin Enteric Coated 81 MG Tablet PO SCH (08:09)
[2020-03-13] MEDS: Cholecalciferol (D-3) 1,000 UNIT (25MCG) TABLET PO SCH (08:09)
[2020-03-13] MEDS: Finasteride 5 MG TABLET PO SCH (08:09)
[2020-03-13] MEDS: Isosorbide MONOnitrate (24 HR) 60 MG TAB.ER.24H PO SCH (08:09)
[2020-03-13] MEDS: Ranolazine 500 MG TAB.ER.12H PO SCH ×2 (08:09→20:02)
[2020-03-13] MEDS ORDERED: 0.9 % Sodium Chloride 500 ML IVC SCH (09:30)
[2020-03-13] MEDS: Budesonide/Formoterol 160/4.5 1 PUFF INH IH SCH ×2 (09:42→21:48)
[2020-03-13] MEDS: Tiotropium 18 MCG inhalation IH SCH (09:44)
[2020-03-13] MEDS: Insulin DETEMIR 100 UNIT/ML X5UNITS SQ SCH (20:02)
[2020-03-14 02:47] LABS: Potassium 4.4 mEq/L (3.5-5.1)
[2020-03-14] MEDS: Ipratropium/Albuterol Neb 3 ML IH SCH ×2 (03:33→10:58)
[2020-03-14] MEDS: Ampicillin/Sulbactam 1,500 MG in 0.9 % Sodium Chloride Mini Bag 100 ML IVPB SCH (05:54)
[2020-03-14] MEDS: *HR* Heparin 5,000 UNIT/ML VIAL SQ SCH (05:54)
[2020-03-14] MEDS ORDERED: 0.9 % Sodium Chloride 1,000 ML IVC SCH (07:15)
[2020-03-14] MEDS: Aspirin Enteric Coated 81 MG Tablet PO SCH (08:09)
[2020-03-14] MEDS: Isosorbide MONOnitrate (24 HR) 60 MG TAB.ER.24H PO SCH (08:10)
[2020-03-14] MEDS: Finasteride 5 MG TABLET PO SCH (08:10)
[2020-03-14] MEDS: Ranolazine 500 MG TAB.ER.12H PO SCH (08:10)
[2020-03-14] MEDS: *HR* Ticagrelor 90 MG TABLET PO SCH (08:10)
[2020-03-14] MEDS: Cholecalciferol (D-3) 1,000 UNIT (25MCG) TABLET PO SCH (08:10)
[2020-03-14] MEDS: Insulin LISPRO 300 UNITS/3 ML VIAL SQ SCH ×2 (08:11→12:43)
[2020-03-14] MEDS: Budesonide/Formoterol 160/4.5 1 PUFF INH IH SCH (10:58)
[2020-03-14] MEDS: Tiotropium 18 MCG inhalation IH SCH (11:00)
[2020-03-14 12:04] VITALS: BP 129/59
[2020-03-14 13:10] LABS: BUN/Creatinine Ratio 22 (6-26); Blood Urea Nitrogen 31 mg/dL (8-23); Carbon Dioxide 26 mEq/L (23-29); Chloride 105 mEq/L (98-107); Glucose 164 mg/dL (70-105); Osmolality,Calculated 292 (280-300); Potassium 4.6 mEq/L (3.5-5.1); Sodium 136 mEq/L (136-145); eGFR For African Americans > 60 (> 60); eGFR For Non-African Americans 50 (> 60)
== END 2020-03-14 15:46 | disposition home or self-care (01) | DRG 865 ==
LOC: EMEROOARM 14:51 → 2ANU 14:51 → SUATTDRO 17:06 → 2ANU 17:34
PROVIDERS: ADMIT Internal Medicine; ATTEND Internal Medicine